=== PATIENT | female | born 1990 | race Caucasian/White ===

== ENCOUNTER → 2019-12-03 | Outpatient (CLI) | payer BC ==
[~2019-12-03] MED LIST: GEODON 20 MG20 MG PO; GEODON 40MG40 MG PO; KLONOPIN 0.5MG0.5 MG PO; LEXAPRO20 MG PO; MELATONIN3 M1 PO
== END ==
LOC: COL.RAD 08:11
DX: Z32.01 Encounter for pregnancy test, result positive (principal)

== ENCOUNTER 2020-02-29 15:34 | Observation (INO) | payer BC, MEDICAID ==
[~2020-02-29] VITALS: Ht 1700 cm; Wt 215.0 kg
[2020-02-29 16:01] LABS: BASO % 0.2 % (0.0-2.0); EOS # 0.1 (0.0-0.7); EOS % 0.4 % (0-4.0); GRAN # 9.4 (1.4-6.5); GRAN % 69.7 % (42.2-75.2); HEMOGLOBIN 11.2 g/dl (12.5-16.0); LYMPH # 3.2 (1.2-3.4); LYMPH % 23.8 % (20.0-51.0); MEAN CELL VOLUME 96 fl (80.0-100.0); MEAN CORPUSCULAR HEMOGLOBIN 32 pg (27.0-31.0); MEAN CORPUSCULAR HGB CONC 34 g/dl (33.0-37.0); MEAN PLATELET VOLUME 11.6 fl (7.4-10.4); MONO # 0.7 (0.1-0.6); MONO % 5.5 % (1.7-9.3); PLATELET COUNT 236 K/mm3 (130-400); RED BLOOD COUNT 3.49 M/mm3 (4.10-5.30); REDCELL DISTRIBUTION WIDTH-CV 13.9 % (11.5-14.5)
[2020-02-29 16:06] LABS: HEMATOCRIT 33.4 % (37.0-47.0)
[2020-02-29 16:09] LABS: ALBUMIN 3.8 gm/dL (3.5-5.0); BILIRUBIN,TOTAL 0.4 mg/dL (0.0-1.0); CALCIUM 8.9 mg/dL (8.4-10.2); CREATININE, serum 0.5 (0.52-1.25)
[2020-02-29 16:11] LABS: COLLECTION METHOD CATHETER
[2020-02-29 16:18] LABS: MUCOUS Present /lpf; PH 5 (5-8); SQUAMOUS EPITHELIAL 0-2 /hpf; URINE APPEARANCE Clear; URINE BACTERIA None Seen /hpf; URINE BILIRUBIN Negative (NEGATIVE); URINE BLOOD 2+ (NEGATIVE); URINE COLOR Yellow; URINE GLUCOSE Negative (NEGATIVE); URINE KETONE 1+ (NEGATIVE); URINE LEUKOCYTE ESTERASE Negative (NEGATIVE); URINE NITRATE Negative (NEGATIVE); URINE PROTEIN(semi-quant) Negative (NEGATIVE); URINE RBC >50 /hpf; URINE UROBILINOGEN Negative (NEGATIVE)
[2020-02-29] MEDS ORDERED: VITAMIN B11000 MCG/M IM (17:33)
[2020-02-29] MEDS ORDERED: MICATIN2% TP (18:29)
[2020-02-29] MEDS ORDERED: PERCOCET 325 MG1 TA2 PO (18:29)
[2020-02-29 23:42] VITALS: BP 118/68; PULSE 67; TEMP 98.1
--- NOTE | 2020-03-01 00:45 | NUR ---
0045 UP TO BR ON OWN AND VOIDED. APPEARS VERY UNCOMFORTABLE. PAIN SCALE RAISED FROM 6 TO 7 IN 15 MINUTES. WANTS TO TRY AND TOUGH IT OUT. 0050 DR MATHIAS NOTIFIED OF PTS INCREASED PAIN AND LITTLE RELIEF FROM LAST PAIN MEDICATION. NEW ORDER TO GIVEN MORPHING 2 MG IV NOW. 0055 MORPHINE 2 MG IVP NOW. PAIN DECREASES TO 4 OVER 15 MINUTES PERIOD.
--- NOTE | 2020-03-01 02:15 | NUR ---
0215 CONTS TO BE VERY UNCOMFORTABLE BUT DOES NOT WANT ANY MORPHINE AT THIS TIME BECAUSE IS VERY NAUSEATED. STATES HAS BEEN NAUSEATED FOR LAST TWO DAYS. HAD ZOFRAN EARLIER IN ER WITH NO RELIEF FROM NAUSEA. ALSO STATES FEELS ITCHY AND BURNING IN VAGINA. DID NOT WANT TO USE MONISTAT CREAM EARLIER BECAUSE SHE SAID IT FELT LIKE IT BURNED HER AT HOME BUT WILL USE IT NOW. DR MATHIAS NOTIFIED OF NAUSEA AND ORDER RECEIVED.
--- NOTE | 2020-03-01 02:30 | NUR ---
0230 PHENERGAN 25 MG IN 50 NS HUNG TO RUN OVER 15 MINUTES PER ORDER.
[2020-03-01 04:00] VITALS: BP 112/64; PULSE 61; TEMP 98.1
--- NOTE | 2020-03-01 04:00 | NUR ---
0400 MORPHINE 2 MG IVP GIVEN PER REQUEST FOR C/O RIGHT FLANK AND LOWER ABD PAIN. UP TO BR ON OWN. KPAD GIVEN FOR BACK.
--- NOTE | 2020-03-01 06:50 | NUR ---
Assessment completed. Patient reports pain "7 out of 10" in right flank that has persisted overnight. Patient recently voided, 300 ml pale yellow urine strained, scant amount of sediment noted. FHTs dopplered for full minute, see documentation. Will given pain medication when able per orders. 0705- Dr. Pinzon at bedside. see physician documentation.
[2020-03-01 06:51] VITALS: BP 120/60; PULSE 74; TEMP 97.8
--- NOTE | 2020-03-01 08:18 | NUR ---
Roles at bedside. See physician documentation.
[2020-03-01 10:11] VITALS: BP 121/64; PULSE 72; TEMP 97.9
--- NOTE | 2020-03-01 10:45 | NUR ---
Radiology at bedside.
--- NOTE | 2020-03-01 12:23 | NUR ---
Roles on unit, reviews ultrasound report and updated on patient assessment. Patient refusing Morphine at this time. Orders that patient is cleared per OB and may be discharged.
--- NOTE | 2020-03-01 12:50 | NUR ---
PA with Urology office rounds on patient. patient cleared by urology for discharge. FHTs dopplered, see documentation. Patient continues to deny need for IV Morphine. INT removed, see documentation. Discharge paperwork reviewed. Labor precautions and reasons to call or return to hospital reviewed. Patient denies questions.
--- NOTE | 2020-03-01 13:55 | NUR ---
Patient escorted off unit by this tar boiler.
== END 2020-03-01 13:55 | disposition home or self-care (01) ==
LOC: COL.ER 15:34 → OB 21:36
PROVIDERS: ADMIT Obstetrics & Gynecology
DX: O26.892 Other specified pregnancy related conditions, second trimester (principal); M54.5 Low back pain; O23.42 Unspecified infection of urinary tract in pregnancy, second trimester; Z3A.19 19 weeks gestation of pregnancy; O99.212 Obesity complicating pregnancy, second trimester; O99.355 Diseases of the nervous system complicating the puerperium; G43.909 Migraine, unspecified, not intractable, without status migrainosus; O99.342 Other mental disorders complicating pregnancy, second trimester; F32.9 Major depressive disorder, single episode, unspecified; F41.9 Anxiety disorder, unspecified; O99.810 Abnormal glucose complicating pregnancy; E16.2 Hypoglycemia, unspecified; O99.285 Endocrine, nutritional and metabolic diseases complicating the puerperium; E53.9 Vitamin B deficiency, unspecified; E55.9 Vitamin D deficiency, unspecified; R31.9 Hematuria, unspecified; O98.812 Other maternal infectious and parasitic diseases complicating pregnancy, second trimester; B37.3 Candidiasis of vulva and vagina; Z90.49 Acquired absence of other specified parts of digestive tract
CPT/HCPCS: G0378; J2270; J2405; J2550; J7120

== ENCOUNTER 2021-12-05 14:17 | Emergency (ER) | payer MEDICAID ==
[~2021-12-05] VITALS: Ht 172.7 cm; Wt 125.0 kg
[~2021-12-05 14:17] MED LIST changes: +MICATIN2% TP; +PERCOCET 325 MG1 TA2 PO; +PRENATAL PO; +VITAMIN B11000 MCG/M IM
[2021-12-05 14:22] VITALS: TEMP 98.5
[2021-12-05 15:57] LABS: BASO % 0.3 % (0.0-2.0); EOS # 0.1 K/mm3 (0.0-0.7); EOS % 0.8 % (0.0-4.0); GRAN # 3.6 K/mm3 (1.4-6.5); GRAN % 50.3 % (42.2-75.2); HEMATOCRIT 37.2 % (37.0-47.0); HEMOGLOBIN 12.6 g/dl (12.5-16.0); LYMPH # 2.9 K/mm3 (1.2-3.4); LYMPH % 40.9 % (20.0-51.0); MEAN CELL VOLUME 95 fl (80.0-100.0); MEAN CORPUSCULAR HEMOGLOBIN 32 pg (27-31); MEAN CORPUSCULAR HGB CONC 34 g/dl (33.0-37.0); MEAN PLATELET VOLUME 11.1 fl (7.4-10.4); MONO # 0.5 K/mm3 (0.1-0.6); MONO % 7.6 % (1.7-9.3); PLATELET COUNT 225 K/mm3 (130-400); RED BLOOD COUNT 3.92 M/mm3 (4.10-5.30); REDCELL DISTRIBUTION WIDTH-CV 13.2 % (11.5-14.5)
[2021-12-05 16:17] LABS: ALBUMIN 3.8 gm/dL (3.5-5.0); BILIRUBIN,TOTAL 0.4 mg/dL (0.2-1.2); CALCIUM 8.9 mg/dL (8.4-10.2); CREATININE, serum 0.74 mg/dL (0.57-1.11); POTASSIUM 4.1 mmol/L (3.5-4.5); TOTAL PROTEIN 6.7 gm/dL (6.2-8.1)
[2021-12-05 17:08] VITALS: BP 121/81; PULSE 68
== END 2021-12-05 17:09 | disposition home or self-care (01) ==
LOC: COL.ER 14:17
PROVIDERS: Personal Emergency Response Attendant
DX: N93.9 Abnormal uterine and vaginal bleeding, unspecified (principal)